=== PATIENT | female | born 1985 | race Caucasian/White ===

== ENCOUNTER 2016-06-03 08:12 | Emergency (ER) | payer OTHER ==
[~2016-06-03] VITALS: Ht 165.1 cm; Wt 105.2 kg
[2016-06-03] MEDS ORDERED: PROZ10CA7 PO (08:32)
[2016-06-03] MEDS ORDERED: TIZA2TA PO (08:32)
[2016-06-03] MEDS ORDERED: NORCOTAB PO (09:27)
[2016-06-03] MEDS ORDERED: ROBA500T PO (09:27)
[2016-06-03] MEDS ORDERED: KETOROLAC 30 MG/ML VIAL (J1885) IM ONE (09:30)
[2016-06-03] MEDS ORDERED: NORCO, ANEXSIA 5/325MG TABLET (HYDROcodone/ACETAMINOPHEN) PO ONE (09:30)
[2016-06-03] MEDS ORDERED: METHOCARBAMOL 500 MG TAB PO ONE (09:30)
[2016-06-03 09:32] VITALS: BP 128/76
== END 2016-06-03 09:55 | disposition home or self-care (01) ==
LOC: M ED 09:19
DX: S39.012A Strain of muscle, fascia and tendon of lower back, initial encounter (principal); X58.XXXA Exposure to other specified factors, initial encounter; Y92.89 Other specified places as the place of occurrence of the external cause; Y93.89 Activity, other specified; Y99.9 Unspecified external cause status
CPT/HCPCS: 96372; 99282; J1885

== ENCOUNTER → 2016-10-23 | Outpatient (REF) | payer OTHER ==
[~2016-10-23] MED LIST: NORCOTAB PO; PROZ10CA7 PO; ROBA500T PO; TIZA2TA PO
[2016-10-23 17:06] LABS: BASO % 0.5 % (0.0-1.0); EOS % 0.7 % (0.0-3.0); LARGE UNSTAINED CELL # 0.1 K/mm3 (0.0-0.4); LARGE UNSTAINED CELL % 1.9 % (0.0-4.0); LYMPH # 2.6 K/mm3 (1.5-4.5); LYMPH % 37.6 % (24.0-44.0); MEAN CORPUSCULAR HEMOGLOBIN 30.2 pg (27.0-33.0); MEAN CORPUSCULAR HGB CONC 33.1 g/dl (32.0-36.5); MONO # 0.3 K/mm3 (0.0-0.8); MONO % 4.9 % (0.0-5.0); NEUTROPHILS # 3.6 K/mm3 (1.8-7.7); NEUTROPHILS % 54.4 % (36.0-66.0); PLATELET COUNT, AUTOMATED 276 k/mm3 (150-450); RED CELL DISTRIBUTION WIDTH 12.1 % (11.5-14.5); WHITE BLOOD COUNT 6.6 K/mm3 (4.0-10.0)
[2016-10-23 17:17] LABS: VITAMIN B12 LEVEL 494 PG/ML
[2016-10-23 17:18] LABS: FOLATE 8.7 NG/ML
[2016-10-23 17:22] LABS: ALBUMIN 3.8 GM/DL (3.2-5.2); ALBUMIN/GLOBULIN RATIO 1.15 (1.00-1.93); ALKALINE PHOSPHATASE 74 U/L (45-117); ALT/SGPT 15 U/L (12-78); ANION GAP 9 MEQ/L (8-16); AST/SGOT 11 U/L (15-37); BILIRUBIN,TOTAL 0.4 MG/DL (0.2-1.0); BLOOD UREA NITROGEN 12 MG/DL (7-18); CARBON DIOXIDE LEVEL 28 MEQ/L (21-32); CHLORIDE LEVEL 108 MEQ/L (98-107); GLOMERULAR FILTRATION RATE > 60.0 (>60); GLUCOSE, FASTING 74 MG/DL (70-105); POTASSIUM SERUM 4.2 MEQ/L (3.5-5.1); SODIUM LEVEL 145 MEQ/L (136-145); TOTAL PROTEIN 7.1 GM/DL (6.4-8.2)
[2016-10-24 11:17] LABS: PRETREATED FOLATE FOR RBCFOL 6.1 NG/ML
== END ==
LOC: M SFHCPLAZ 12:46
PROVIDERS: ATTEND Physician Assistant Medical
DX: Z98.84 Bariatric surgery status (principal); E55.9 Vitamin D deficiency, unspecified; E53.8 Deficiency of other specified B group vitamins

== ENCOUNTER 2017-04-21 06:36 | Emergency (ER) | payer OTHER ==
[2017-04-21] MEDS: KETOROLAC 60 MG/2 ML VIAL (J1885) IM (07:59)
[2017-04-21] MEDS: diazePAM 5 MG TAB PO (07:59)
== END 2017-04-21 08:18 | disposition home or self-care (01) ==
LOC: M ED 06:36
DX: M54.5 Low back pain (principal); G89.29 Other chronic pain; E66.9 Obesity, unspecified; Z79.899 Other long term (current) drug therapy; Z98.0 Intestinal bypass and anastomosis status
CPT/HCPCS: J1885

== ENCOUNTER → 2017-08-17 | Outpatient (REF) | payer OTHER ==
[2017-08-17 20:26] LABS: BASO % 0.4 % (0.0-1.0); EOS % 0.4 % (0.0-3.0); HEMOGLOBIN 13.8 g/dl (12.0-15.5); IMMATURE GRANULOCYTE % 0.1 % (0-3.0); LYMPH # 2.8 10^3/uL (1.5-4.5); LYMPH % 36.6 % (24.0-44.0); MEAN CORPUSCULAR HEMOGLOBIN 29.9 pg (27.0-33.0); MEAN CORPUSCULAR HGB CONC 32.9 g/dl (32.0-36.5); MEAN CORPUSCULAR VOLUME 91.1 fl (80.0-96.0); MONO # 0.4 10^3/uL (0.0-0.8); MONO % 5.5 % (0.0-5.0); NEUTROPHILS # 4.4 10^3/uL (1.8-7.7); PLATELET COUNT, AUTOMATED 323 10^3/uL (150-450); RED BLOOD COUNT 4.61 10^6/uL (4.00-5.40); RED CELL DISTRIBUTION WIDTH 12.8 % (11.5-14.5); WHITE BLOOD COUNT 7.7 10^3/uL (4.0-10.0)
[2017-08-17 20:38] LABS: TOTAL 25(OH) VITAMIN D 19.2 NG/ML (30.0-100.0)
[2017-08-17 20:41] LABS: ALBUMIN/GLOBULIN RATIO 1.21 (1.00-1.93); ALKALINE PHOSPHATASE 67 U/L (45-117); ALT/SGPT 20 U/L (12-78); ANION GAP 6 MEQ/L (8-16); AST/SGOT 15 U/L (7-37); BILIRUBIN,TOTAL 0.4 MG/DL (0.2-1.0); BLOOD UREA NITROGEN 12 MG/DL (7-18); CALCIUM LEVEL 9.2 MG/DL (8.5-10.1); CARBON DIOXIDE LEVEL 28 MEQ/L (21-32); CHLORIDE LEVEL 108 MEQ/L (98-107); CHOLESTEROL LEVEL 188 MG/DL (<200); CHOLESTEROL RISK RATIO 4.177 (<5); CREATININE FOR GFR 0.89 MG/DL (0.55-1.30); FERRITIN 21 NG/ML (8-252); FREE T4 1.03 NG/DL (0.76-1.46); GLOMERULAR FILTRATION RATE > 60.0 (>60); GLUCOSE, FASTING 79 MG/DL (70-100); HDL CHOLESTEROL 45 MG/DL (>40); IRON (FE) 54 UG/DL (50-170); NON-HDL-C 143 MG/DL; POTASSIUM SERUM 4.7 MEQ/L (3.5-5.1); SODIUM LEVEL 142 MEQ/L (136-145); TOTAL IRON BINDING CAPACITY 360 UG/DL (250-450); TOTAL PROTEIN 7.3 GM/DL (6.4-8.2); TRIGLYCERIDES LEVEL 90 MG/DL (<150)
[2017-08-20 10:29] LABS: VITAMIN B12 LEVEL 413 PG/ML
== END ==
LOC: M SFHCADAM 15:08
DX: F31.9 Bipolar disorder, unspecified (principal); Z98.84 Bariatric surgery status; E55.9 Vitamin D deficiency, unspecified; E53.8 Deficiency of other specified B group vitamins; E66.01 Morbid (severe) obesity due to excess calories

== ENCOUNTER → 2018-08-18 | Outpatient (CLI) | payer OTHER ==
[~2018-08-18] MED LIST changes: +BACT800T5 PO; +CLEO300C2 PO; +HYDR-3713 PO; +HYDR-3715 PO; +MAGICMW SSP; +METH1TAB40; -NORCOTAB PO; +TYLETAB14 PO; +VENTAER; +VITA200010
[2018-08-18 18:14] LABS: HEMATOCRIT 41.1 % (36.0-47.0); MEAN CORPUSCULAR HEMOGLOBIN 28.6 pg (27.0-33.0); MEAN CORPUSCULAR HGB CONC 31.6 g/dl (32.0-36.5); MEAN CORPUSCULAR VOLUME 90.5 fl (80.0-96.0); PLATELET COUNT, AUTOMATED 321 10^3/uL (150-450); RED BLOOD COUNT 4.54 10^6/uL (4.00-5.40); WHITE BLOOD COUNT 5.9 10^3/uL (4.0-10.0)
[2018-08-18 18:29] LABS: ALBUMIN 3.3 GM/DL (3.2-5.2); ALT/SGPT 15 U/L (12-78); BILIRUBIN,TOTAL 0.5 MG/DL (0.2-1.0); BLOOD UREA NITROGEN 8 MG/DL (7-18); CALCIUM LEVEL 8.4 MG/DL (8.5-10.1); CARBON DIOXIDE LEVEL 27 MEQ/L (21-32); CHLORIDE LEVEL 109 MEQ/L (98-107); CHOLESTEROL LEVEL 212 MG/DL (<200); FERRITIN 10 NG/ML (8-252); GLOMERULAR FILTRATION RATE > 60.0 (>60); GLUCOSE, FASTING 79 MG/DL (70-100); HDL CHOLESTEROL 47 MG/DL (>40); IRON (FE) 49 UG/DL (50-170); LDL CHOLESTEROL 144 MG/DL (<100); NON-HDL-C 165 MG/DL; PERCENT SATURATION 14.2 % (13.2-45.0); POTASSIUM SERUM 4.8 MEQ/L (3.5-5.1); SODIUM LEVEL 143 MEQ/L (136-145); TOTAL IRON BINDING CAPACITY 345 UG/DL (250-450); TOTAL PROTEIN 6.9 GM/DL (6.4-8.2); TRIGLYCERIDES LEVEL 103 MG/DL (<150)
[2018-08-18 18:45] LABS: HEMOGLOBIN A1c 5.2 %
[2018-08-19 10:11] LABS: TOTAL 25(OH) VITAMIN D 24.1 NG/ML (30.0-100.0); VITAMIN B12 LEVEL 535 PG/ML (247-911)
== END ==
LOC: M WUC 12:22
PROVIDERS: ATTEND Nurse Practitioner Adult Health
DX: Z98.84 Bariatric surgery status (principal); E55.9 Vitamin D deficiency, unspecified; E53.8 Deficiency of other specified B group vitamins

== ENCOUNTER 2018-08-20 09:32 | Emergency (ER) | payer OTHER ==
[~2018-08-20] VITALS: Ht 165.1 cm; Wt 110.5 kg
[~2018-08-20 09:32] MED LIST changes: -BACT800T5 PO; -CLEO300C2 PO; -MAGICMW SSP; -METH1TAB40; -TYLETAB14 PO; -VITA200010
[2018-08-20 09:33] VITALS: BP 158/94
[2018-08-20] MEDS ORDERED: VITA200010 (09:43)
[2018-08-20] MEDS ORDERED: METH1TAB40 (09:43)
[2018-08-20] MEDS ORDERED: BACT800T5 PO (10:03)
[2018-08-20] MEDS ORDERED: MAGICMW SSP (10:03)
[2018-08-20] MEDS ORDERED: TYLETAB14 PO (10:03)
[2018-08-20] MEDS ORDERED: BACTRIM 160MG/800MG DS TAB PO ONE (10:15)
[2018-08-21] MEDS ORDERED: CLEO300C2 PO (10:30)
== END 2018-08-20 10:15 | disposition home or self-care (01) ==
LOC: M ED 09:32
DX: K04.7 Periapical abscess without sinus (principal); Z98.84 Bariatric surgery status

== ENCOUNTER 2018-08-21 04:26 | Emergency (ER) | payer OTHER ==
[~2018-08-21] VITALS: Ht 165.1 cm; Wt 110.9 kg
[~2018-08-21 04:26] MED LIST changes: +BACT800T5 PO; +MAGICMW SSP; +METH1TAB40; +TYLETAB14 PO; +VITA200010
[2018-08-21] MEDS ORDERED: KETOROLAC 30 MG/ML VIAL (J1885) IV ONE (06:00)
[2018-08-21 06:40] LABS: BASO # 0.1 10^3/uL (0.0-0.2); BASO % 0.4 % (0.0-1.0); EOS % 0.1 % (0.0-3.0); HEMATOCRIT 41.9 % (36.0-47.0); HEMOGLOBIN 13.6 g/dl (12.0-15.5); LYMPH # 2.2 10^3/uL (1.5-4.5); LYMPH % 16.6 % (24.0-44.0); MEAN CORPUSCULAR HEMOGLOBIN 28.8 pg (27.0-33.0); MEAN CORPUSCULAR HGB CONC 32.5 g/dl (32.0-36.5); MEAN CORPUSCULAR VOLUME 88.8 fl (80.0-96.0); MONO # 0.9 10^3/uL (0.0-0.8); MONO % 6.5 % (0.0-5.0); NEUTROPHILS % 75.9 % (36.0-66.0); PLATELET COUNT, AUTOMATED 346 10^3/uL (150-450); RED BLOOD COUNT 4.72 10^6/uL (4.00-5.40); WHITE BLOOD COUNT 13.2 10^3/uL (4.0-10.0)
[2018-08-21] MEDS ORDERED: ISOVUE-370 76% 100ML VIAL (Q9967) As Ordered ONE (06:43)
[2018-08-21] MEDS ORDERED: AMPICILLIN SOD/SULBACTAM SOD 3 GM in D5W MINI-BAG PLUS 100 ML IV ONE (06:45)
[2018-08-21 07:15] LABS: BLOOD UREA NITROGEN 6 MG/DL (7-18); C REACTIVE PROTEIN QUANTITATIV 1.49 MG/DL (0.00-0.30); CALCIUM LEVEL 8.4 MG/DL (8.5-10.1); CARBON DIOXIDE LEVEL 27 MEQ/L (21-32); CHLORIDE LEVEL 106 MEQ/L (98-107); CREATININE FOR GFR 0.94 MG/DL (0.55-1.30); GLOMERULAR FILTRATION RATE > 60.0 (>60); GLUCOSE, FASTING 103 MG/DL (70-100); POTASSIUM SERUM 4.3 MEQ/L (3.5-5.1); SODIUM LEVEL 140 MEQ/L (136-145)
--- NOTE | 2018-08-21 09:12 | REP ---
MAXILLOFACIAL CT WITH CONTRAST: HISTORY: Left facial swelling. CONTRAST: Isovue 370, 75 mL. Mild mucosal thickening is present in the left maxillary sinus. Minimal mucosal thickening is present in the left ethmoid sinus. The remaining sinuses are clear. Mucosal thickening involves the left osteomeatal unit. The right osteomeatal unit is patent. The middle and inferior nasal turbinates are partially paradoxical. There is chely bullosa of the middle nasal turbinates. There is mild deviation of the nasal septum to the left. The cribriform plate, medial gaffney of the orbits, and optic canals are intact. The carotid canals form a segment of the posterolateral gaffney of the sphenoid sinus. There is soft tissue thickening along the buccal surface of the left maxilla and anterior body of the left mandible. This is consistent with a phlegmon. Stranding is present in the overlying subcutaneous tissue consistent with edema. The naso- and hypopharynx are normal in appearance. The salivary glands are normal in size and density. Small lymph nodes less than 1 cm in size are present in the internal jugular chains, posterior triangles, and submandibular areas. Periapical lucency involves the first premolar tooth of the left mandible. IMPRESSION: 1. Sinus mucosal thickening as described above. 2. There is a small phlegmon along the buccal surface of the left maxilla and body of the left mandible. Electronically Signed by Jacob Madden MD 08/21/2018 09:44 A
[2018-08-21] MEDS ORDERED: CLEO300C2 PO (10:30)
[2018-08-21 10:58] VITALS: BP 113/72
--- NOTE | 2018-08-22 06:46 | ED PDOC ---
Post-Departure Follow-Up dr valerio and carrol olivo faxed formal report of ct max fac for fu Remy Love MD Aug 22, 2018 06:46
== END 2018-08-21 10:59 | disposition home or self-care (01) ==
LOC: M ED 04:26
DX: K04.7 Periapical abscess without sinus (principal); L03.211 Cellulitis of face; Z98.84 Bariatric surgery status; Z79.899 Other long term (current) drug therapy
CPT/HCPCS: 70487; 80048; 85025; 86140; 87040; 96374; 96375; 99284; J1885; Q9967

== ENCOUNTER 2018-10-14 06:40 | Emergency (ER) | payer OTHER ==
[~2018-10-14] VITALS: Ht 165.1 cm; Wt 109.1 kg
[~2018-10-14 06:40] MED LIST changes: +CLEO300C2 PO
[2018-10-14] MEDS ORDERED: methylPREDNISolone INJ 125 MG/2 ML VIAL (J2930) IV ONE (08:00)
[2018-10-14] MEDS ORDERED: diphenhydrAMINE INJ 50MG/ML VIAL (J1200) IV ONE (08:00)
[2018-10-14] MEDS ORDERED: PRED20TA PO (09:58)
[2018-10-14 10:02] VITALS: BP 113/66
== END 2018-10-14 10:07 | disposition home or self-care (01) ==
LOC: M ED 06:40
DX: L23.7 Allergic contact dermatitis due to plants, except food (principal); J45.909 Unspecified asthma, uncomplicated; E55.9 Vitamin D deficiency, unspecified; F33.9 Major depressive disorder, recurrent, unspecified; F41.9 Anxiety disorder, unspecified; Z79.899 Other long term (current) drug therapy
CPT/HCPCS: 96374; 96375; 99284; J1200; J2930

== ENCOUNTER → 2019-05-03 | Outpatient (CLI) | payer OTHER ==
[~2019-05-03] MED LIST changes: +PRED20TA PO
--- NOTE | 2019-05-03 11:47 | REP ---
Clinical: Lower back pain. Technique: AP, lateral, bilateral oblique and coned-down views of the lumbosacral spine. Comparison: 03/22/2011. Findings: Alignment and lordosis maintained. Early advanced degenerative disc osteophyte complex at L4-5 and L5-L1 includes endplate sclerosis, disc space narrowing, marginal spurring, and hypertrophic facet changes. These findings appear to have progressed since prior examination. Remainder examination demonstrates mild age-related degenerative changes. No acute fracture / compression injury or subluxation. Impression: Early advanced degenerative spondylosis at L4-5 and L5-L1. Electronically Signed by Seth Whaley MD 05/03/2019 11:39 A
--- NOTE | 2019-05-03 11:59 | REP ---
Clinical: thoracic back pain. Technique: AP, lateral, and swimmers views. Findings: Alignment and kyphosis is maintained. Vertebral bodies intact. No acute fracture / compression injury or subluxation. No degenerative changes. Paravertebral soft tissues are normal. Impression: Age-appropriate thoracic spine series. Electronically Signed by Seth Whaley MD 05/03/2019 11:51 A
[2019-05-03 14:08] LABS: HEMATOCRIT 40.2 % (36.0-47.0); HEMOGLOBIN 12.9 g/dl (12.0-15.5); MEAN CORPUSCULAR HEMOGLOBIN 29.5 pg (27.0-33.0); MEAN CORPUSCULAR HGB CONC 32.1 g/dl (32.0-36.5); MEAN CORPUSCULAR VOLUME 91.8 fl (80.0-96.0); PLATELET COUNT, AUTOMATED 230 10^3/uL (150-450); RED BLOOD COUNT 4.38 10^6/uL (4.00-5.40); WHITE BLOOD COUNT 4.9 10^3/uL (4.0-10.0)
[2019-05-03 14:10] LABS: HEMATOCRIT 40.2 % (36.0-47.0)
[2019-05-03 14:24] LABS: FREE T4 0.81 NG/DL (0.76-1.46); PERCENT SATURATION 38.3 % (13.2-45.0); THYROID STIMULATING HORMONE 1.89 uIU/ML (0.358-3.740)
[2019-05-05 10:22] LABS: TOTAL 25(OH) VITAMIN D 33.4 NG/ML (30.0-100.0)
== END ==
LOC: M WUC 10:49
PROVIDERS: ATTEND Nurse Practitioner Adult Health
DX: E53.8 Deficiency of other specified B group vitamins (principal); Z98.84 Bariatric surgery status; E55.9 Vitamin D deficiency, unspecified; F31.9 Bipolar disorder, unspecified; E66.01 Morbid (severe) obesity due to excess calories

== ENCOUNTER → 2020-05-18 | Outpatient (REF) | payer OTHER ==
[~2020-05-18] MED LIST changes: +METH-1164; -METH1TAB40
[2020-05-18 17:55] LABS: HEMATOCRIT 37.5 % (36.0-47.0); HEMOGLOBIN 11.3 g/dl (12.0-15.5); MEAN CORPUSCULAR HEMOGLOBIN 26.2 pg (27.0-33.0); MEAN CORPUSCULAR HGB CONC 30.1 g/dl (32.0-36.5); PLATELET COUNT, AUTOMATED 290 10^3/uL (150-450); RED BLOOD COUNT 4.31 10^6/uL (4.00-5.40); WHITE BLOOD COUNT 6.5 10^3/uL (4.0-10.0)
[2020-05-18 18:24] LABS: ALBUMIN 3.6 GM/DL (3.2-5.2); ALT/SGPT 15 U/L (12-78); BILIRUBIN,TOTAL 0.3 MG/DL (0.2-1.0); BLOOD UREA NITROGEN 8 MG/DL (7-18); CARBON DIOXIDE LEVEL 31 MEQ/L (21-32); CHLORIDE LEVEL 106 MEQ/L (98-107); CREATININE FOR GFR 0.92 MG/DL (0.55-1.30); GLOMERULAR FILTRATION RATE > 60.0 (>60); GLUCOSE, FASTING 79 MG/DL (70-100); SODIUM LEVEL 140 MEQ/L (136-145); TOTAL 25(OH) VITAMIN D 30.8 NG/ML (30.0-100.0); TOTAL PROTEIN 6.9 GM/DL (6.4-8.2); VITAMIN B12 LEVEL 550 PG/ML (247-911)
[2020-05-18 18:27] LABS: HEMOGLOBIN A1c 5.4 %
== END ==
LOC: M SFHCPLAZ 15:09
PROVIDERS: ATTEND Nurse Practitioner Adult Health
DX: Z98.84 Bariatric surgery status (principal); E53.8 Deficiency of other specified B group vitamins; E55.9 Vitamin D deficiency, unspecified

== ENCOUNTER → 2022-01-24 | Outpatient (CLI) | payer OTHER ==
[2022-01-24 17:50] LABS: HEMATOCRIT 36.8 % (36.0-47.0); HEMOGLOBIN 11.6 g/dl (12.0-15.5); MEAN CORPUSCULAR HEMOGLOBIN 27.7 pg (27.0-33.0); MEAN CORPUSCULAR HGB CONC 31.5 g/dl (32.0-36.5); MEAN CORPUSCULAR VOLUME 87.8 fl (80.0-96.0); PLATELET COUNT, AUTOMATED 253 10^3/uL (150-450); RED BLOOD COUNT 4.19 10^6/uL (4.00-5.40); WHITE BLOOD COUNT 5.6 10^3/uL (4.0-10.0)
[2022-01-24 18:11] LABS: ALBUMIN 3.5 GM/DL (3.2-5.2); ALT/SGPT 15 U/L (12-78); BILIRUBIN,TOTAL 0.3 MG/DL (0.2-1.0); BLOOD UREA NITROGEN 7 MG/DL (7-18); CALCIUM LEVEL 8.2 MG/DL (8.5-10.1); CARBON DIOXIDE LEVEL 28 MEQ/L (21-32); CHLORIDE LEVEL 106 MEQ/L (98-107); CREATININE FOR GFR 0.95 MG/DL (0.55-1.30); FERRITIN 7 NG/ML (8-252); GLOMERULAR FILTRATION RATE > 60.0 (>60); GLUCOSE, FASTING 67 MG/DL (70-100); IRON (FE) 79 UG/DL (50-170); MAGNESIUM LEVEL 1.7 MG/DL (1.8-2.4); SODIUM LEVEL 141 MEQ/L (136-145); TOTAL IRON BINDING CAPACITY 415 UG/DL (250-450); TOTAL PROTEIN 6.7 GM/DL (6.4-8.2)
[2022-01-24 18:36] LABS: FOLATE 3.7 NG/ML (>5.4); VITAMIN B12 LEVEL 1017 PG/ML (247-911)
== END ==
LOC: M PLALAB 14:29
PROVIDERS: ATTEND Nurse Practitioner Adult Health
DX: E53.8 Deficiency of other specified B group vitamins (principal)

== ENCOUNTER → 2022-09-11 | Outpatient (CLI) | payer OTHER ==
[2022-09-11 19:20] LABS: HEMATOCRIT 33.7 % (36.0-47.0); HEMOGLOBIN 10.3 g/dl (12.0-15.5); MEAN CORPUSCULAR HEMOGLOBIN 26.5 pg (27.0-33.0); MEAN CORPUSCULAR HGB CONC 30.6 g/dl (32.0-36.5); MEAN CORPUSCULAR VOLUME 86.6 fl (80.0-96.0); PLATELET COUNT, AUTOMATED 287 10^3/uL (150-450); RED BLOOD COUNT 3.89 10^6/uL (4.00-5.40); WHITE BLOOD COUNT 5.4 10^3/uL (4.0-10.0)
[2022-09-11 19:45] LABS: THYROID STIMULATING HORMONE 2.021 uIU/ML (0.55-4.78)
[2022-09-11 19:46] LABS: ALBUMIN 3.4 G/DL (3.2-5.2); ALKALINE PHOSPHATASE 58 U/L (46-116); ALT/SGPT 11 U/L (7.0-40); AST/SGOT 17 U/L (<34); BILIRUBIN,TOTAL 0.2 MG/DL (0.3-1.2); BLOOD UREA NITROGEN 10 MG/DL (9-23); CALCIUM LEVEL 8.3 MG/DL (8.5-10.1); CARBON DIOXIDE LEVEL 28 MMOL/L (20-31); CHLORIDE LEVEL 108 MMOL/L (98-107); CREATININE FOR GFR 0.76 MG/DL (0.55-1.30); GLOMERULAR FILTRATION RATE > 60.0 (>60); GLUCOSE, FASTING 70 MG/DL (60-100); IRON (FE) 21 UG/DL (50-170); MAGNESIUM LEVEL 1.5 MG/DL (1.8-2.4); PERCENT SATURATION 5.5 % (13.2-45.0); POTASSIUM SERUM 3.8 MMOL/L (3.5-5.1); SODIUM LEVEL 142 MMOL/L (136-145); TOTAL 25(OH) VITAMIN D 45.8 NG/ML (20.0-100.0); TOTAL IRON BINDING CAPACITY 385 UG/DL (250-425)
[2022-09-11 19:48] LABS: VITAMIN B12 LEVEL 591 PG/ML (211-911)
== END ==
LOC: M WUC 13:09
PROVIDERS: ATTEND Nurse Practitioner Adult Health
DX: Z98.84 Bariatric surgery status (principal); E55.9 Vitamin D deficiency, unspecified

== ENCOUNTER → 2023-07-11 | Outpatient (CLI) | payer OTHER ==
[2023-07-11 18:05] LABS: ALBUMIN 3.6 G/DL (3.2-5.2); ALKALINE PHOSPHATASE 60 U/L (46-116); ALT/SGPT < 9 U/L (7.0-40); AST/SGOT 15 U/L (<34); BILIRUBIN,TOTAL 0.2 MG/DL (0.3-1.2); BLOOD UREA NITROGEN 5 MG/DL (9-23); CARBON DIOXIDE LEVEL 30 MMOL/L (20-31); CHLORIDE LEVEL 105 MMOL/L (98-107); CREATININE FOR GFR 0.78 MG/DL (0.55-1.30); GLOMERULAR FILTRATION RATE > 60.0 (>60); GLUCOSE, FASTING 79 MG/DL (60-100); IRON (FE) 30 UG/DL (50-170); PERCENT SATURATION 6.8 % (13.2-45.0); POTASSIUM SERUM 4.3 MMOL/L (3.5-5.1); SODIUM LEVEL 141 MMOL/L (136-145); TOTAL IRON BINDING CAPACITY 443 UG/DL (250-425); TOTAL PROTEIN 6.6 G/DL (5.7-8.2); VITAMIN B12 LEVEL 1760 PG/ML (211-911)
[2023-07-11 18:06] LABS: HEMATOCRIT 34.9 % (36.0-47.0); HEMOGLOBIN 10.4 g/dl (12.0-15.5); MEAN CORPUSCULAR HEMOGLOBIN 23.9 pg (27.0-33.0); MEAN CORPUSCULAR HGB CONC 29.8 g/dl (32.0-36.5); MEAN CORPUSCULAR VOLUME 80.2 fl (80.0-96.0); PLATELET COUNT, AUTOMATED 280 10^3/uL (150-450); RED BLOOD COUNT 4.35 10^6/uL (4.00-5.40)
[2023-07-11 18:07] LABS: THYROID STIMULATING HORMONE 1.657 uIU/ML (0.55-4.78)
[2023-07-11 18:25] LABS: HEMOGLOBIN A1c 4.9 % (4.0-6.0)
== END ==
LOC: M PLALAB 15:11
PROVIDERS: ATTEND Nurse Practitioner Adult Health
DX: R53.83 Other fatigue (principal)

== ENCOUNTER → 2023-09-10 | Outpatient (CLI) | payer OTHER | LOC: M WUC 14:40 | PROVIDERS: ATTEND Nurse Practitioner Adult Health | DX: M51.36 Other intervertebral disc degeneration, lumbar region (principal); M54.6 Pain in thoracic spine; M54.50 Low back pain, unspecified; Z53.9 Procedure and treatment not carried out, unspecified reason ==

== ENCOUNTER → 2023-09-19 | Outpatient (CLI) | payer OTHER | LOC: M SOG 07:56 | PROVIDERS: ATTEND Physician Assistant | DX: Z53.9 Procedure and treatment not carried out, unspecified reason (principal) ==

== ENCOUNTER → 2023-09-19 | Outpatient (CLI) | payer OTHER | LOC: M SOG 12:08 | PROVIDERS: ATTEND Physician Assistant | DX: M25.561 Pain in right knee (principal) ==

== ENCOUNTER 2023-09-21 14:04 | Outpatient (CLI) | payer OTHER ==
[~2023-09-21] VITALS: Ht 165.1 cm; Wt 90.0 kg
[~2023-09-21 14:04] MED LIST changes: +ALBUTEROL SULFATE 2.5MG/0.5ML INH NEB SOLN INH PRN; +EPINEPHrine INJ 1 MG/ML 1ML AMP IM PRN; +diphenhydrAMINE 50MG/ML VIAL IV PRN; +methylPREDNISolone 125MG 2ML VIAL IV PRN
[2023-09-21 14:15] VITALS: BP 132/66; O2SAT 99
[2023-09-21] MEDS: ACETAMINOPHEN TAB 650MG DOSE (2X325MG) PO ONE (14:21)
[2023-09-21] MEDS: diphenhydrAMINE 25MG CAP PO ONE (14:21)
[2023-09-21] MEDS ORDERED: NS 1,000 ML IV SCH (14:30)
[2023-09-21] MEDS: IRON SUCROSE 200 MG in NS 100 ML OVER 1 HR IV ONE (14:43)
[2023-09-21 15:55] VITALS: BP 125/72; O2SAT 100
== END 2023-09-21 15:55 ==
LOC: M INFU 14:04
PROVIDERS: ATTEND Nurse Practitioner Adult Health
DX: D50.9 Iron deficiency anemia, unspecified (principal)
CPT/HCPCS: 96365; J1756

== ENCOUNTER 2023-09-28 14:32 | Outpatient (CLI) | payer OTHER ==
[~2023-09-28] VITALS: Ht 165.1 cm; Wt 90.0 kg
[~2023-09-28 14:32] MED LIST changes: +NS 1,000 ML IV SCH
[2023-09-28] MEDS: ACETAMINOPHEN 650MG PO PRIOR TO INFUSION PO ONE (15:14)
[2023-09-28] MEDS: IRON SUCROSE 200 MG in NS 100 ML OVER 1 HR IV ONE (15:14)
[2023-09-28] MEDS: diphenhydrAMINE 25MG PO PRIOR TO INFUSION PO ONE (15:14)
[2023-09-28 15:23] VITALS: BP 133/72; O2SAT 99
[2023-09-28 16:21] VITALS: BP 122/73; O2SAT 98
== END 2023-09-28 16:25 | disposition home or self-care (01) ==
LOC: M INFU 14:32
PROVIDERS: ATTEND Nurse Practitioner Adult Health
DX: D50.9 Iron deficiency anemia, unspecified (principal)
CPT/HCPCS: 96365; J1756

== ENCOUNTER 2023-10-05 14:52 | Outpatient (CLI) | payer OTHER ==
[~2023-10-05] VITALS: Ht 165.1 cm; Wt 93.0 kg
[~2023-10-05 14:52] MED LIST changes: -NS 1,000 ML IV SCH
[2023-10-05] MEDS ORDERED: NS 1,000 ML IV SCH (15:00)
[2023-10-05] MEDS ORDERED: ACETAMINOPHEN TAB 650MG DOSE (2X325MG) PO ONE (15:00)
[2023-10-05] MEDS ORDERED: diphenhydrAMINE 25MG CAP PO ONE (15:00)
[2023-10-05] MEDS: IRON SUCROSE 200 MG in NS 100 ML OVER 1 HR IV ONE (15:45)
[2023-10-05 16:50] VITALS: BP 134/74; O2SAT 100
== END 2023-10-05 16:55 ==
LOC: M INFU 14:52
PROVIDERS: ATTEND Nurse Practitioner Adult Health
DX: D50.9 Iron deficiency anemia, unspecified (principal)
CPT/HCPCS: 96365; J1756

== ENCOUNTER 2023-10-12 13:15 | Outpatient (CLI) | payer OTHER ==
[~2023-10-12] VITALS: Ht 165.1 cm; Wt 92.3 kg
[2023-10-12 13:15] VITALS: BP 130/77; O2SAT 98
[~2023-10-12 13:15] MED LIST changes: +NS 1,000 ML IV SCH
[2023-10-12] MEDS: diphenhydrAMINE 25MG PO PRIOR TO INFUSION PO ONE (13:25)
[2023-10-12] MEDS: IRON SUCROSE 200 MG in NS 100 ML OVER 1 HR IV ONE (13:25)
[2023-10-12] MEDS ORDERED: ACETAMINOPHEN 650MG PO PRIOR TO INFUSION PO ONE (13:30)
[2023-10-12 14:30] VITALS: BP 125/82; O2SAT 99
== END 2023-10-12 14:30 ==
LOC: M INFU 13:15
PROVIDERS: ATTEND Nurse Practitioner Adult Health
DX: D50.9 Iron deficiency anemia, unspecified (principal)
CPT/HCPCS: 96365; J1756

== ENCOUNTER 2023-10-15 13:24 | Outpatient (RCR) | payer OTHER | END 2023-10-17 | LOC: M PT 13:24 | PROVIDERS: ATTEND Nurse Practitioner Adult Health | DX: M54.50 Low back pain, unspecified (principal); M54.6 Pain in thoracic spine ==

== ENCOUNTER → 2023-10-15 | Outpatient (CLI) | payer OTHER ==
[~2023-10-15] MED LIST changes: -ALBUTEROL SULFATE 2.5MG/0.5ML INH NEB SOLN INH PRN; -EPINEPHrine INJ 1 MG/ML 1ML AMP IM PRN; -NS 1,000 ML IV SCH; -diphenhydrAMINE 50MG/ML VIAL IV PRN; -methylPREDNISolone 125MG 2ML VIAL IV PRN
== END ==
LOC: M PLALAB 15:03
PROVIDERS: ATTEND Nurse Practitioner Adult Health
DX: M54.9 Dorsalgia, unspecified (principal)

== ENCOUNTER → 2023-10-24 | Outpatient (CLI) | payer OTHER ==
[2023-10-24 19:15] LABS: FERRITIN 48.9 NG/ML (7.3-270.7); PERCENT SATURATION 32.2 % (13.2-45.0)
[2023-10-24 19:18] LABS: HEMATOCRIT 38.6 % (36.0-47.0); MEAN CORPUSCULAR HEMOGLOBIN 27.3 pg (27.0-33.0); MEAN CORPUSCULAR HGB CONC 31.1 g/dl (32.0-36.5); MEAN CORPUSCULAR VOLUME 87.7 fl (80.0-96.0); PLATELET COUNT, AUTOMATED 257 10^3/uL (150-450); WHITE BLOOD COUNT 4.7 10^3/uL (4.0-10.0)
== END ==
LOC: M PLALAB 15:02
PROVIDERS: ATTEND Nurse Practitioner Adult Health
DX: D50.9 Iron deficiency anemia, unspecified (principal)

== ENCOUNTER 2023-11-14 07:00 | Outpatient (RCR) | payer OTHER | END 2023-11-17 | LOC: M PT 07:00 | PROVIDERS: ATTEND Nurse Practitioner Adult Health | DX: M54.50 Low back pain, unspecified (principal) ==

== ENCOUNTER 2023-12-10 13:30 | Outpatient (RCR) | payer OTHER | END 2023-12-17 | LOC: M PT 13:30 | PROVIDERS: ATTEND Nurse Practitioner Adult Health | DX: M54.50 Low back pain, unspecified (principal) ==

== ENCOUNTER → 2024-01-15 | Outpatient (CLI) | payer OTHER ==
[2024-01-15 11:47] LABS: BASO % 0.5 % (0.0-1.0); EOS # 0.1 10^3/uL (0.0-0.5); EOS % 1.2 % (0.0-3.0); HEMATOCRIT 37.3 % (36.0-47.0); LYMPH # 2.8 10^3/uL (1.5-5.0); LYMPH % 46.5 % (24.0-44.0); MEAN CORPUSCULAR HEMOGLOBIN 29.9 pg (27.0-33.0); MEAN CORPUSCULAR HGB CONC 32.2 g/dl (32.0-36.5); MONO # 0.5 10^3/uL (0.0-0.8); MONO % 8.5 % (2.0-8.0); NEUTROPHILS # 2.6 10^3/uL (1.5-8.5); NEUTROPHILS % 43.3 % (36.0-66.0); PLATELET COUNT, AUTOMATED 282 10^3/uL (150-450); RED BLOOD COUNT 4.01 10^6/uL (4.00-5.40); WHITE BLOOD COUNT 5.9 10^3/uL (4.0-10.0)
[2024-01-15 12:11] LABS: ALBUMIN 3.2 G/DL (3.2-5.2); ALKALINE PHOSPHATASE 48 U/L (35-104); ALT/SGPT 10 U/L (7.0-40); AST/SGOT 12 U/L (<34); BILIRUBIN,TOTAL 0.2 MG/DL (0.3-1.2); BLOOD UREA NITROGEN 9 MG/DL (9-23); CALCIUM LEVEL 8.7 MG/DL (8.5-10.1); CARBON DIOXIDE LEVEL 33 MMOL/L (20-31); CHLORIDE LEVEL 106 MMOL/L (98-107); CREATININE FOR GFR 0.82 MG/DL (0.55-1.30); GLOMERULAR FILTRATION RATE > 60.0 (>60); GLUCOSE, FASTING 79 MG/DL (60-100); POTASSIUM SERUM 4.2 MMOL/L (3.5-5.1); SODIUM LEVEL 142 MMOL/L (136-145)
== END ==
LOC: M PLALAB 08:55
PROVIDERS: ATTEND Family Medicine
DX: Z01.810 Encounter for preprocedural cardiovascular examination (principal)

== ENCOUNTER → 2024-01-22 | Outpatient (REF) | payer OTHER ==
[~2024-01-22] MED LIST changes: +B-12100010 PO; +BUPR150T12 PO; +CYCL-707 PO; +IRON65TA2 PO; +LIDO1ADH16 TP; -METH-1164; +METH-1164 PO; +VITA100093 PO
== END ==
LOC: M SFHCWAGY 15:01
PROVIDERS: ATTEND Advanced Practice Midwife
DX: Z12.4 Encounter for screening for malignant neoplasm of cervix (principal)

== ENCOUNTER 2024-01-24 09:45 | Observation (INO) | payer OTHER ==
[~2024-01-24] VITALS: Ht 165.1 cm; Wt 98.1 kg
[~2024-01-24 09:45] MED LIST changes: +LIDO1ADH16 TOP; -LIDO1ADH16 TP; +LIDOCAINE 2% 100MG/5ML SDV (FOR ANES.) As Ordered ONE; +ONDANSETRON 4MG 2ML VIAL As Ordered ONE; +ROCURONIUM BROMIDE 50MG/5ML VIAL As Ordered ONE; +SUGAMMADEX SODIUM 500 MG/5 ML VIAL (BRIDION) As Ordered ONE; -VENTAER; +VENTAER INH; +dexmedeTOMIDine (4MCG/ML)200MCG/50ML BTL (PRECEDEX) As Ordered ONE; +propofoL 200 MG/20 ML VIAL As Ordered ONE
[2024-01-24] MEDS ORDERED: fentaNYL 100 MCG/2 ML INJECTION As Ordered ONE (11:15)
[2024-01-24] MEDS ORDERED: MIDAZOLAM INJ 2MG/2ML VIAL As Ordered ONE (11:15)
[2024-01-24] MEDS: ceFAZolin SOD 2 GM in IV 1 EA IV ONE (11:56)
[2024-01-24] MEDS: HEPARIN SOD (PORCINE) 5000UNITS/ML 1ML VIAL/SYRINGE SQ ONE (12:12)
[2024-01-24] MEDS ORDERED: ACETAMINOPHEN 1000MG 100ML IV BAG As Ordered ONE (12:55)
[2024-01-24] MEDS ORDERED: HYDROmorphone HCL 2MG/ML 1ML VIAL As Ordered ONE (12:59)
[2024-01-24] MEDS: LIDOCAINE 1% MDV 20ML VIAL As Ordered ONE (14:15)
[2024-01-24] MEDS: EPINEPHrine INJ 1 MG/ML 1ML AMP As Ordered ONE (14:15)
[2024-01-24] MEDS: GENTAMICIN SULF 80MG/2ML VIAL As Ordered ONE (15:32)
[2024-01-24] MEDS ORDERED: PERCOCET 5MG/325MG TAB PO PRN (15:35)
[2024-01-24] MEDS ORDERED: NS 1,000 ML IV SCH (15:55)
[2024-01-24] MEDS ORDERED: fentaNYL 100 MCG/2 ML INJECTION IV PRN (15:55)
[2024-01-24] MEDS ORDERED: ONDANSETRON 4MG 2ML VIAL IV PRN ×2 (15:55→18:00)
[2024-01-24] MEDS: HYDROMORPHONE HCL 0.5 MG/ 0.5 ML SYRINGE IV PRN (16:20)
[2024-01-24] MEDS: oxyCODONE 5MG TAB PO PRN (16:24)
[2024-01-24 17:30] VITALS: BP 134/82; TEMP 98.2; O2SAT 97
[2024-01-24 18:00] VITALS: BP 130/76; TEMP 97.9; O2SAT 96
[2024-01-24] MEDS ORDERED: ACETAMINOPHEN 325 MG TAB PO PRN (18:00)
[2024-01-24] MEDS: LR 1,000 ML IV SCH (18:42)
[2024-01-24 19:00] VITALS: BP 132/80; TEMP 97.5; O2SAT 95
[2024-01-24 20:00] VITALS: BP 133/80; TEMP 98.4; O2SAT 97
[2024-01-24] MEDS: ceFAZolin SOD 2 GM in IV 1 EA IV SCH (20:24)
[2024-01-24] MEDS: traMADol 50 MG TAB PO PRN (20:25)
[2024-01-24 20:57] VITALS: BP 133/80; TEMP 97.3; O2SAT 96
[2024-01-24 22:00] VITALS: BP 130/81; TEMP 97; O2SAT 93
[2024-01-25 02:00] VITALS: BP 120/72; TEMP 97.9; O2SAT 98
[2024-01-25 06:21] LABS: HEMATOCRIT 35.1 % (36.0-47.0); HEMOGLOBIN 11.7 g/dl (12.0-15.5); MEAN CORPUSCULAR HEMOGLOBIN 30.2 pg (27.0-33.0); MEAN CORPUSCULAR HGB CONC 33.3 g/dl (32.0-36.5); MEAN CORPUSCULAR VOLUME 90.5 fl (80.0-96.0); PLATELET COUNT, AUTOMATED 218 10^3/uL (150-450); RED BLOOD COUNT 3.88 10^6/uL (4.00-5.40); WHITE BLOOD COUNT 10.3 10^3/uL (4.0-10.0)
[2024-01-25 06:23] VITALS: BP 125/70; TEMP 98.2; O2SAT 98
[2024-01-25] MEDS ORDERED: MED REC IN PROGRESS XX SCH (07:40)
[2024-01-25 08:00] VITALS: BP 123/71; TEMP 98.2; O2SAT 98
[2024-01-25] MEDS: buPROPion **XL** TABLET 150MG (WELLBUTRIN XL) PO SCH (08:24)
[2024-01-25] MEDS ORDERED: HOME MED LIST COMPLETE! XX SCH (09:30)
[2024-01-25] MEDS ORDERED: TRAM50TA2 PO (09:37)
[2024-01-25 12:00] VITALS: BP 121/71; TEMP 98.2; O2SAT 90
== END 2024-01-25 13:20 | disposition home or self-care (01) ==
LOC: M SDC 09:45 → M RR INP 09:46 → M MS5PR 17:20
PROVIDERS: ADMIT Plastic Surgery Surgery of the Hand; ATTEND Plastic Surgery Surgery of the Hand
DX: M79.3 Panniculitis, unspecified (principal); G47.30 Sleep apnea, unspecified; Z98.84 Bariatric surgery status; Z88.8 Allergy status to other drugs, medicaments and biological substances; Z79.899 Other long term (current) drug therapy
CPT/HCPCS: 15830; 36415; 81025; 85027; 88300; 96365; 96366; 96376; C9290; J0131; J0171; J0665; J0690; J1100; J1171; J1580; J2250; J2405; J3010

== ENCOUNTER → 2024-04-24 | Outpatient (CLI) | payer OTHER ==
[~2024-04-24] MED LIST changes: -LIDOCAINE 2% 100MG/5ML SDV (FOR ANES.) As Ordered ONE; -ONDANSETRON 4MG 2ML VIAL As Ordered ONE; -ROCURONIUM BROMIDE 50MG/5ML VIAL As Ordered ONE; -SUGAMMADEX SODIUM 500 MG/5 ML VIAL (BRIDION) As Ordered ONE; +TRAM50TA2 PO; -dexmedeTOMIDine (4MCG/ML)200MCG/50ML BTL (PRECEDEX) As Ordered ONE; -propofoL 200 MG/20 ML VIAL As Ordered ONE
== END ==
LOC: M SOG 07:57
PROVIDERS: ATTEND Physician Assistant
DX: Z53.9 Procedure and treatment not carried out, unspecified reason (principal)

== ENCOUNTER → 2024-04-29 | Outpatient (CLI) | payer OTHER | LOC: M SOG 07:55 | PROVIDERS: ATTEND Physician Assistant | DX: S89.92XA Unspecified injury of left lower leg, initial encounter (principal); W18.30XA Fall on same level, unspecified, initial encounter; Y92.009 Unspecified place in unspecified non-institutional (private) residence as the place of occurrence of the external cause ==

== ENCOUNTER 2024-05-27 14:07 | Outpatient (RCR) | payer OTHER | END 2024-06-16 | LOC: M PT 14:07 | PROVIDERS: ATTEND Physician Assistant | DX: M25.562 Pain in left knee (principal) ==

== ENCOUNTER 2024-06-25 13:30 | Outpatient (RCR) | payer OTHER | END 2024-07-16 | LOC: M PT 13:30 | PROVIDERS: ATTEND Physician Assistant | DX: M25.562 Pain in left knee (principal) ==

== ENCOUNTER 2024-09-18 15:02 | Outpatient (CLI) | payer OTHER ==
[~2024-09-18 15:02] MED LIST changes: +ALBUTEROL SULFATE 2.5 MG/0.5 ML INH CONCENTRATE NEB SOLN INH PRN; +EPINEPHrine INJ 1 MG/ML 1ML AMP IM PRN; +diphenhydrAMINE 50 MG/ML VIAL IV PRN
[2024-09-18 15:40] VITALS: BP 118/73; O2SAT 99
[2024-09-18] MEDS: IRON SUCROSE 300 MG in NS 250 ML IV ONE (15:48)
[2024-09-18 17:18] VITALS: BP 119/81; O2SAT 99
== END 2024-09-18 17:20 ==
LOC: M INFU 15:02
PROVIDERS: ATTEND Nurse Practitioner Adult Health
DX: D50.9 Iron deficiency anemia, unspecified (principal); Z88.6 Allergy status to analgesic agent
CPT/HCPCS: 96365; J1756